=== PATIENT | female | born 1950 | race Caucasian/White ===

== ENCOUNTER 2017-05-01 15:08 | Inpatient (IN) | payer OTHER ==
[~2017-05-01] VITALS: Ht 160 cm; Wt 122.5 kg
[~2017-05-01 15:08] MED LIST: ALDACTONE50 MG PO; ALPRAZOLAM0.25 MG PO; APAP/HYDROCODON1 T13 PO; ARMOUR THYROID30 MG PO; ASPIR 8181 MG PO; CARVEDILOL3.125 M1 PO; CELEBREX200 MG PO; COLACE100 MG PO; COR3 PO; COZAAR100 MG PO; DILAUDID4 MG PO; ECO81 PO; ENFAMIL D-V400 IU/ML PO; FERROUS SULFAT325 M2 PO; FOLIC ACID1 MG PO; FUROSEMIDE20 MG PO; GABAPENTIN300 M2 PO; HYDROXYZINE50 M1 PO; LASIX40 MG PO; LOSARTAN POTAS100 M1 PO; MAG PO; METFORMIN HCL500 MG PO; NOR5 PO; PENTOXIFYL XR400 M1 PO; PRA20 PO; RANITIDINE HCL300 MG PO; THY30 PO; VIS25 PO; VOLTAREN75 MG PO; ZOC20 PO; [UNRECOGNIZED DRUG - OTHER]
[2017-05-01 15:57] LABS: BASOPHIL % 0.7 % (0-2)
[2017-05-01 16:03] LABS: CALCIUM 8.9 mg/dL (8.5-10.1); CARBON DIOXIDE 24.9 mmol/L (21-32); CREATININE SERUM 1.5 mg/dL (0.6-1.0); POTASSIUM SERUM 4.4 mmol/L (3.5-5.1)
[2017-05-01 16:07] LABS: BILIRUBIN TOTAL 0.5 mg/dL (0.20-1.00); TOTAL PROTEIN, SERUM 7.3 g/dL (6.4-8.2)
[2017-05-01 16:14] LABS: ALBUMIN 3.3 g/dL (3.4-5.0)
[2017-05-01 16:33] LABS: RED CELL DISTRIBUTION WIDTH 14.8 % (11.5-14.5)
[2017-05-01 16:35] LABS: PLATELET COUNT 4 x10^3mcL (130-400)
[2017-05-01 17:06] LABS: BASOPHIL % 0.4 % (0-2)
[2017-05-01 17:09] LABS: RED CELL DISTRIBUTION WIDTH 14.7 % (11.5-14.5)
[2017-05-01 17:14] LABS: PLATELET COUNT 4 x10^3mcL (130-400)
[2017-05-01 17:29] LABS: rbc morphology (normal/abnorm) ABNORMAL (NORMAL)
[2017-05-01 17:30] LABS: ovalocyte/elliptocyte 1+; tear drop cell (dacryocyte) 1+
[2017-05-01] MEDS ORDERED: CARAFATE1 GM PO (18:09)
[2017-05-01] MEDS ORDERED: NEPHRO-VITE VITA1 EA PO ×2 (18:09→18:12)
[2017-05-01] MEDS ORDERED: LYRICA75 M1 PO (18:10)
[2017-05-01] MEDS ORDERED: ELIQUIS5 MG PO (18:10)
[2017-05-01] MEDS ORDERED: ASPIR-TRIN325 MG PO (18:11)
[2017-05-01] MEDS ORDERED: GLIPIZIDE5 M2 PO (18:12)
[2017-05-01] MEDS ORDERED: DOK COLACE100 MG PO (18:12)
[2017-05-01] MEDS ORDERED: FUROSEMIDE20 MG PO (18:12)
[2017-05-01] MEDS ORDERED: FERROUS SULFAT325 M2 PO (18:13)
[2017-05-01] MEDS ORDERED: CARVEDILOL3.125 M1 PO (18:13)
[2017-05-01] MEDS ORDERED: NITROGLYCERIN0.4 MG SL (18:14)
[2017-05-01] MEDS ORDERED: BACLOFEN10 MG PO (18:15)
[2017-05-01] MEDS ORDERED: SYNTHROID0.05 MG PO (18:24)
[2017-05-01] MEDS ORDERED: DOXEPIN HCL10 MG PO (18:24)
[2017-05-01] MEDS ORDERED: NOR10T PO (18:25)
[2017-05-01] MEDS ORDERED: CITALOPRAM HYDR10 M1 PO (18:25)
[2017-05-01 19:23] VITALS: BP 120/55
[2017-05-01 19:23] LABS: MAGNESIUM 1.8 mg/dL (1.8-2.4); PHOSPHOROUS 3.2 mg/dL (2.5-4.9)
[2017-05-01 19:27] LABS: T3 TOTAL 1.47 ng/mL
[2017-05-01 19:32] LABS: FREE T4 1.19 ng/dL (0.76-1.46); FREE THYROXINE INDEX 3.3 ug/dL (1.4-4.5)
[2017-05-01 20:20] LABS: CHOLESTEROL/HDL RATIO 2.6
[2017-05-01 21:55] VITALS: BP 139/83
[2017-05-02] MEDS ORDERED: DOXEPIN PO (02:54)
[2017-05-02 05:00] VITALS: BP 142/78
[2017-05-02 05:18] LABS: microscopic required? NO
[2017-05-02 05:36] LABS: urine erythrocyte NEGATIVE (NEGATIVE)
[2017-05-02 05:46] LABS: AMPHETAMINE QUAL UR NONE DETECTED (NEG <=1000)
[2017-05-02 09:20] VITALS: BP 135/68
[2017-05-02 11:24] LABS: BASOPHIL % 0.4 % (0-2)
[2017-05-02 11:46] LABS: RED CELL DISTRIBUTION WIDTH 14.9 % (11.5-14.5)
[2017-05-02 11:49] LABS: PLATELET COUNT 4 x10^3mcL (130-400)
[2017-05-02 11:57] LABS: CALCIUM 9.3 mg/dL (8.5-10.1); CARBON DIOXIDE 31.6 mmol/L (21-32); CREATININE SERUM 1.4 mg/dL (0.6-1.0); MAGNESIUM 1.9 mg/dL (1.8-2.4); PHOSPHOROUS 3.1 mg/dL (2.5-4.9); POTASSIUM SERUM 3.2 mmol/L (3.5-5.1)
[2017-05-02 13:36] VITALS: BP 133/57
[2017-05-02] MEDS ORDERED: FENTANYL TR25 MCG/H1 TD (17:35)
[2017-05-02 17:54] VITALS: BP 125/59
[2017-05-02 21:38] LABS: RED BLOOD CELLS 3.61 M/mm3 (4.10-5.10)
[2017-05-02 21:50] VITALS: BP 113/57
[2017-05-02 21:58] LABS: IRON 99 ug/dL (50-170); TOTAL IRON BINDING CAPACITY 245 ug/dL (250-450)
[2017-05-03 06:22] VITALS: BP 110/38
[2017-05-03 06:41] LABS: CALCIUM 9.1 mg/dL (8.5-10.1); CARBON DIOXIDE 26.8 mmol/L (21-32); CREATININE SERUM 1.3 mg/dL (0.6-1.0); POTASSIUM SERUM 4.1 mmol/L (3.5-5.1)
[2017-05-03 07:06] LABS: BASOPHIL % 0.1 % (0-2); RED CELL DISTRIBUTION WIDTH 14.3 % (11.5-14.5)
[2017-05-03 07:30] LABS: PLATELET COUNT 3 x10^3mcL (130-400)
[2017-05-03 07:56] LABS: rbc morphology (normal/abnorm) ABNORMAL (NORMAL)
[2017-05-03 07:57] LABS: ovalocyte/elliptocyte 1+; target cell (codocyte) 1+
[2017-05-03 10:14] VITALS: BP 140/58
[2017-05-03 13:07] VITALS: BP 140/58
[2017-05-03 13:08] VITALS: BP 126/49
== END 2017-05-03 13:16 | disposition short-term general hospital (02) | DRG 813 ==
LOC: ED 15:08 → DU 18:03
PROVIDERS: Emergency Medicine; ADMIT Family Medicine
PROC: 2Y41X5Z Packing of Nasal Region using Packing Material (ICD-10-PCS; principal; 2017-05-01)
PROC: 30233R1 Transfusion of Nonautologous Platelets into Peripheral Vein, Percutaneous Approach (ICD-10-PCS; 2017-05-01)
PROC: 30233K1 Transfusion of Nonautologous Frozen Plasma into Peripheral Vein, Percutaneous Approach (ICD-10-PCS; 2017-05-02)
DX: D69.3 Immune thrombocytopenic purpura (principal); N17.0 Acute kidney failure with tubular necrosis; I50.43 Acute on chronic combined systolic (congestive) and diastolic (congestive) heart failure; E44.1 Mild protein-calorie malnutrition; Z68.42 Body mass index [BMI] 45.0-49.9, adult; R04.0 Epistaxis; E11.42 Type 2 diabetes mellitus with diabetic polyneuropathy; E87.6 Hypokalemia; E78.5 Hyperlipidemia, unspecified; K21.9 Gastro-esophageal reflux disease without esophagitis; K74.60 Unspecified cirrhosis of liver; F41.8 Other specified anxiety disorders; D50.9 Iron deficiency anemia, unspecified; E03.9 Hypothyroidism, unspecified; E66.01 Morbid (severe) obesity due to excess calories; I25.10 Atherosclerotic heart disease of native coronary artery without angina pectoris; I25.2 Old myocardial infarction; Z96.653 Presence of artificial knee joint, bilateral; Z86.73 Personal history of transient ischemic attack (TIA), and cerebral infarction without residual deficits; Z86.74 Personal history of sudden cardiac arrest; Z79.01 Long term (current) use of anticoagulants; Z79.82 Long term (current) use of aspirin
CPT/HCPCS: 82962; 83880; 84439; J1940; J2930; J7040; J7050; P9035; P9059; Q0092; Q0163; Q9967

== ENCOUNTER 2019-08-31 01:50 | Inpatient (IN) | payer OTHER ==
[~2019-08-31] VITALS: Ht 160 cm; Wt 145.0 kg
[~2019-08-31 01:50] MED LIST changes: +ASPIR-TRIN325 MG PO; +BACLOFEN10 MG PO; +CARAFATE1 GM PO; +CITALOPRAM HYDR10 M1 PO; +DOK COLACE100 MG PO; +DOXEPIN HCL10 MG PO; +DOXEPIN PO; +ELIQUIS5 MG PO; +FENTANYL TR25 MCG/H1 TD; +GLIPIZIDE5 M2 PO; +LYRICA75 M1 PO; +NEPHRO-VITE VITA1 EA PO; +NITROGLYCERIN0.4 MG SL; +NOR10T PO; +SYNTHROID0.05 MG PO
[2019-08-31 07:25] LABS: PLATELET COUNT 171 x10^3mcL (130-400)
[2019-08-31 07:42] LABS: CALCIUM 8.8 mg/dL (8.5-10.1); CREATININE SERUM 1.2 mg/dL (0.6-1.0); POTASSIUM SERUM 3.9 mmol/L (3.5-5.1)
[2019-08-31 07:47] LABS: ALBUMIN 2.7 g/dL (3.4-5.0); BILIRUBIN TOTAL 0.79 mg/dL (0.20-1.00); TOTAL PROTEIN, SERUM 6.8 g/dL (6.4-8.2)
[2019-08-31 08:04] LABS: RED CELL DISTRIBUTION WIDTH 14.8 % (11.5-14.5)
[2019-08-31 08:58] LABS: BAND NEUTROPHIL 2 % (0-10); MONOCYTE 9 % (0-7); SEGMENTED NEUTROPHILS 57 % (37-75); rbc morphology (normal/abnorm) ABNORMAL (NORMAL)
[2019-08-31 08:59] LABS: PLATELET MORPHOLOGY LARGE PLATELET SEEN; target cell (codocyte) 1+
[2019-08-31 13:38] VITALS: BP 125/70
[2019-08-31 18:04] VITALS: BP 138/69
[2019-08-31 20:18] VITALS: BP 106/47
[2019-09-01 02:15] VITALS: BP 117/66
[2019-09-01 05:04] VITALS: BP 156/76
[2019-09-01 07:05] LABS: CALCIUM 8.3 mg/dL (8.5-10.1); CREATININE SERUM 1.2 mg/dL (0.6-1.0); POTASSIUM SERUM 3.5 mmol/L (3.5-5.1)
[2019-09-01 07:48] LABS: BASOPHIL % 0.1 % (0-2); PLATELET COUNT 115 x10^3mcL (130-400); RED CELL DISTRIBUTION WIDTH 15.3 % (11.5-14.5)
[2019-09-01 07:52] LABS: rbc morphology (normal/abnorm) ABNORMAL (NORMAL)
[2019-09-01 08:40] VITALS: BP 140/68
[2019-09-01 11:36] VITALS: BP 112/44
[2019-09-01 16:56] VITALS: BP 129/58
[2019-09-01 21:29] VITALS: BP 112/55
[2019-09-02 05:03] VITALS: BP 122/59
[2019-09-02 06:35] LABS: CALCIUM 8.1 mg/dL (8.5-10.1); CARBON DIOXIDE 28.2 mmol/L (21-32); CREATININE SERUM 1.2 mg/dL (0.6-1.0); POTASSIUM SERUM 3.8 mmol/L (3.5-5.1)
[2019-09-02 07:15] LABS: BASOPHIL % 0.1 % (0-2)
[2019-09-02 07:30] LABS: PLATELET COUNT 113 x10^3mcL (130-400); RED CELL DISTRIBUTION WIDTH 15.1 % (11.5-14.5)
[2019-09-02 08:10] VITALS: BP 130/61
[2019-09-02 11:40] VITALS: BP 123/74
[2019-09-02 16:30] VITALS: BP 142/72
[2019-09-02 20:56] VITALS: BP 146/66
[2019-09-03 06:04] VITALS: BP 118/69
[2019-09-03 07:12] LABS: CALCIUM 8.4 mg/dL (8.5-10.1); CARBON DIOXIDE 25.7 mmol/L (21-32); MAGNESIUM 1.5 mg/dL (1.8-2.4); POTASSIUM SERUM 3.7 mmol/L (3.5-5.1)
[2019-09-03 07:35] LABS: BASOPHIL % 0 % (0-2); PLATELET COUNT 122 x10^3mcL (130-400); RED CELL DISTRIBUTION WIDTH 15.4 % (11.5-14.5)
[2019-09-03 08:30] VITALS: BP 119/76
[2019-09-03 11:15] VITALS: BP 141/81
[2019-09-03 15:10] VITALS: BP 143/82
[2019-09-03 19:15] VITALS: BP 149/119
[2019-09-03 23:02] VITALS: BP 150/90
[2019-09-04 03:05] VITALS: BP 159/91
[2019-09-04 05:17] LABS: BASOPHIL % 0.4 % (0-2)
[2019-09-04 05:19] LABS: RED CELL DISTRIBUTION WIDTH 15.1 % (11.5-14.5)
[2019-09-04 05:20] LABS: PLATELET COUNT 124 x10^3mcL (130-400)
[2019-09-04 05:22] LABS: CALCIUM 8.5 mg/dL (8.5-10.1); CARBON DIOXIDE 24.8 mmol/L (21-32); MAGNESIUM 2.4 mg/dL (1.8-2.4); POTASSIUM SERUM 3.6 mmol/L (3.5-5.1)
[2019-09-04 07:15] VITALS: BP 158/76
[2019-09-04 07:55] VITALS: Ht 160 cm; Wt 145.0 kg
[2019-09-04 11:00] VITALS: BP 156/71
[2019-09-04 15:15] VITALS: BP 160/77
[2019-09-04 19:15] VITALS: BP 158/91
[2019-09-04 22:00] VITALS: BP 148/76
[2019-09-05 05:35] VITALS: BP 139/86
[2019-09-05 06:50] LABS: CALCIUM 8.3 mg/dL (8.5-10.1); CARBON DIOXIDE 26.6 mmol/L (21-32); POTASSIUM SERUM 3.6 mmol/L (3.5-5.1)
[2019-09-05 06:54] LABS: BASOPHIL % 0.5 % (0-2)
[2019-09-05 07:00] LABS: PLATELET COUNT 113 x10^3mcL (130-400); RED CELL DISTRIBUTION WIDTH 15.2 % (11.5-14.5)
[2019-09-05 07:02] LABS: rbc morphology (normal/abnorm) ABNORMAL (NORMAL)
[2019-09-05 09:09] VITALS: BP 153/78
[2019-09-05 14:24] VITALS: BP 147/72
[2019-09-05 16:40] VITALS: BP 143/80
[2019-09-05 21:36] VITALS: BP 136/79
[2019-09-06 06:19] VITALS: BP 116/54
[2019-09-06 07:24] LABS: BASOPHIL % 0.5 % (0-2)
[2019-09-06 07:38] LABS: PLATELET COUNT 118 x10^3mcL (130-400); RED CELL DISTRIBUTION WIDTH 15.4 % (11.5-14.5)
[2019-09-06 07:48] LABS: CALCIUM 8.3 mg/dL (8.5-10.1); CARBON DIOXIDE 28.5 mmol/L (21-32); CREATININE SERUM 1.1 mg/dL (0.6-1.0)
[2019-09-06 09:08] VITALS: BP 115/69
[2019-09-06 12:09] VITALS: BP 105/81
[2019-09-06 17:08] VITALS: BP 145/82
[2019-09-06 20:48] VITALS: BP 113/62
[2019-09-07 06:42] LABS: BASOPHIL % 0.6 % (0-2)
[2019-09-07 06:56] LABS: CALCIUM 8.3 mg/dL (8.5-10.1); CARBON DIOXIDE 28.2 mmol/L (21-32); CREATININE SERUM 1.1 mg/dL (0.6-1.0); POTASSIUM SERUM 4.1 mmol/L (3.5-5.1)
[2019-09-07 06:58] LABS: PLATELET COUNT 125 x10^3mcL (130-400); RED CELL DISTRIBUTION WIDTH 15.1 % (11.5-14.5)
[2019-09-07 08:22] VITALS: BP 147/76
[2019-09-07 17:08] VITALS: BP 144/71
[2019-09-07 20:41] VITALS: BP 138/68
[2019-09-08 05:24] VITALS: BP 140/77
[2019-09-08 06:27] LABS: BASOPHIL % 0.5 % (0-2); PLATELET COUNT 142 x10^3mcL (130-400)
[2019-09-08 06:42] LABS: CALCIUM 8.9 mg/dL (8.5-10.1); CARBON DIOXIDE 29.1 mmol/L (21-32); CREATININE SERUM 1.2 mg/dL (0.6-1.0); MAGNESIUM 1.7 mg/dL (1.8-2.4)
[2019-09-08 07:16] LABS: RED CELL DISTRIBUTION WIDTH 14.9 % (11.5-14.5)
[2019-09-08 09:11] VITALS: BP 146/68
[2019-09-08] MEDS ORDERED: CARVEDILOL12.5 M1 PO (10:53)
[2019-09-08 11:11] VITALS: BP 146/68
== END 2019-09-08 12:06 | disposition home or self-care (01) | DRG 557 ==
LOC: ED 01:50 → DU 09:21 → MU 09:21 → DU 10:45 → IC 09-03 08:08 → DU 09-04 22:10 → MU 09-07 16:50
PROVIDERS: Emergency Medicine; General Practice; ADMIT Internal Medicine
DX: M62.82 Rhabdomyolysis (principal); I21.4 Non-ST elevation (NSTEMI) myocardial infarction; N17.9 Acute kidney failure, unspecified; C22.0 Liver cell carcinoma; Z68.43 Body mass index [BMI] 50.0-59.9, adult; I48.91 Unspecified atrial fibrillation; S83.92XA Sprain of unspecified site of left knee, initial encounter; S70.02XA Contusion of left hip, initial encounter; S80.02XA Contusion of left knee, initial encounter; S76.111A Strain of right quadriceps muscle, fascia and tendon, initial encounter; I12.9 Hypertensive chronic kidney disease with stage 1 through stage 4 chronic kidney disease, or unspecified chronic kidney disease; I25.10 Atherosclerotic heart disease of native coronary artery without angina pectoris; N18.9 Chronic kidney disease, unspecified; M81.0 Age-related osteoporosis without current pathological fracture; K75.81 Nonalcoholic steatohepatitis (NASH); K74.69 Other cirrhosis of liver; K21.9 Gastro-esophageal reflux disease without esophagitis; E03.9 Hypothyroidism, unspecified; E78.5 Hyperlipidemia, unspecified; I25.2 Old myocardial infarction; Z91.81 History of falling; Z79.82 Long term (current) use of aspirin; Z79.4 Long term (current) use of insulin; Z96.653 Presence of artificial knee joint, bilateral; Z86.73 Personal history of transient ischemic attack (TIA), and cerebral infarction without residual deficits; Z86.011 Personal history of benign neoplasm of the brain; G43.909 Migraine, unspecified, not intractable, without status migrainosus; W18.39XA Other fall on same level, initial encounter; Y92.009 Unspecified place in unspecified non-institutional (private) residence as the place of occurrence of the external cause
CPT/HCPCS: 82962; 97116-GP; 97530-GP; C9113; G0378; J0282; J1815; J1885; J2405; J2785; J3475; J3490; J7030; Q0092